=== PATIENT | female | born 1985 | race Caucasian/White ===

== ENCOUNTER 2016-10-21 21:12 | Emergency (ER) | payer OTHER ==
[2016-10-21] MEDS ORDERED: ACETAMINOPHEN TAB 650MG DOSE (2X325MG) As Ordered ONE (23:28)
[2016-10-21] MEDS ORDERED: MORPHINE 4 MG/ML 1ML SYRINGE As Ordered ONE (23:28)
[2016-10-21] MEDS ORDERED: ONDANSETRON 4MG/2ML VIAL (J2405) As Ordered ONE (23:28)
[2016-10-22] MEDS ORDERED: ISOVUE-370 76% 100ML VIAL (Q9967) As Ordered ONE
[2016-10-22] MEDS ORDERED: GASTROGRAFIN SOLUTION 30ML (Q9963) As Ordered ONE (00:01)
[2016-10-22] MEDS ORDERED: ACETAMINOPHEN 650 MG SUPP As Ordered ONE (00:01)
[2016-10-22 00:06] LABS: BASO % 0.3 % (0.0-1.0); EOS % 0.3 % (0.0-3.0); LARGE UNSTAINED CELL # 0.1 K/mm3 (0.0-0.4); LARGE UNSTAINED CELL % 1.5 % (0.0-4.0); LYMPH # 1.5 K/mm3 (1.5-4.5); LYMPH % 20.7 % (24.0-44.0); MEAN CORPUSCULAR HEMOGLOBIN 26.5 pg (27.0-33.0); MEAN CORPUSCULAR HGB CONC 32.5 g/dl (32.0-36.5); MEAN CORPUSCULAR VOLUME 81.5 fl (80.0-96.0); MONO # 0.4 K/mm3 (0.0-0.8); MONO % 5.3 % (0.0-5.0); NEUTROPHILS # 5.3 K/mm3 (1.8-7.7); NEUTROPHILS % 71.8 % (36.0-66.0); PLATELET COUNT, AUTOMATED 116 k/mm3 (150-450); RED CELL DISTRIBUTION WIDTH 13.6 % (11.5-14.5); WHITE BLOOD COUNT 7.3 K/mm3 (4.0-10.0)
[2016-10-22 01:05] LABS: ALBUMIN 3.2 GM/DL (3.2-5.2); ALBUMIN/GLOBULIN RATIO 0.97 (1.00-1.93); ALKALINE PHOSPHATASE 59 U/L (45-117); ALT/SGPT 23 U/L (12-78); ANION GAP 10 MEQ/L (8-16); AST/SGOT 12 U/L (15-37); BILIRUBIN,DIRECT 0.2 MG/DL (0.0-0.2); BILIRUBIN,TOTAL 0.7 MG/DL (0.2-1.0); BLOOD UREA NITROGEN 7 MG/DL (7-18); CALCIUM LEVEL 8.3 MG/DL (8.5-10.1); CARBON DIOXIDE LEVEL 24 MEQ/L (21-32); CHLORIDE LEVEL 108 MEQ/L (98-107); CREATININE FOR GFR 0.54 MG/DL (0.55-1.02); GLOMERULAR FILTRATION RATE > 60.0 (>60); GLUCOSE, FASTING 84 MG/DL (70-105); POTASSIUM SERUM 3.6 MEQ/L (3.5-5.1); SODIUM LEVEL 142 MEQ/L (136-145); TOTAL PROTEIN 6.5 GM/DL (6.4-8.2)
[2016-10-22 01:06] LABS: CONTROL LINE HCG INT CTR LINE PRESENT
--- NOTE | 2016-10-22 04:10 | REPUSA ---
CLINICAL HISTORY: Abdominal pain. TECHNIQUE: Multiple axial, sagittal and coronal CT images were obtained through the abdomen and pelvi s after administration of oral and intravenous contrast material. COMMENTS: The liver is of uniform attenuation without mass or defect. There is no intra or extrahepatic biliary ductal dilatation. The spleen is normal. The gallbladder is surgically absent. The pancreas is of no rmal contour and attenuation characteristics. There is no evidence of adrenal mass. Both kidneys demonstrate prompt and equal nephrograms. The kidneys are normal in size, shape and conf iguration. There is no evidence of renal or ureteral mass. No renal or ureteral calculi are identifie d. There is no hydroureter or hydronephrosis. No evidence for appendicitis. No evidence for small or large bowel obstruction. There is no evidence of abdominal ascites or lymphadenopathy. Mildly dilated proximal small bowels. Diffuse thickening of the sigmoid and descending colon. There is no evidence of intrinsic or extrinsic bladder mass. There is no pelvic ascites or lymphadeno leticia. Intrauterine device is seen. Diffuse thickening of the wall of the bladder. Images of the lung bases show no evidence of pleural or parenchymal mass. There are no pleural effusi ons. The bony structures are free of lytic or blastic lesions. Multilevel degenerative changes are seen in volving the thoracolumbar spine. Scattered calcifications are seen involving the aorta and major bran ches compatible with atherosclerosis. IMPRESSION: Gastric surgery. Fat thickening in the surgical bed. Mild ileus. Diffuse thickening of the sigmoid and descending colon. Thank you for your kind referral of this patient.
--- NOTE | 2016-10-22 04:26 | EDDOCDS ---
Nurse's Notes [facility] Name: Raquel Castaneda Age: 30 yrs Sex: Female : 1985 Arrival Date: 10/21/2016 Time: 21:12 Bed 6 Private MD: PATO Correa Diagnosis: Abdominal tenderness;Postgastric surgery syndromes Presentation: 10/21 21:15 Presenting complaint: Patient states: Patient reports five weeks post gastric sleeve jmb and pulled on abdomen. Since incident patient has had abdominal pain, most pin under left breast. Adult Sepsis Screening: The patient does not have new or worsening altered mentation. Patient's respiratory rate is less than 22. Systolic blood pressure is greater than 100. Patient has a qSOFA score of 0- Negative Sepsis Screen. Suicide/Homicide risk assessment- the patient denies having any suicidal and/or homicidal ideations and does not present with any other emotional, behavioral or mental health complaints. Status: The patient is a dependent. Transition of care: patient was not received from another setting of care. 21:15 Acuity: TATIANA Level 3 jmb 21:15 Method Of Arrival: Walkin/Carried/Asstd jmb Triage Assessment: 21:17 General: Appears in no apparent distress. Pain: Location: left breast Pain currently is jmb 9 out of 10 on a pain scale. HIV screening NA for this visit Offered previously. Neurological: Level of Consciousness is awake, alert, obeys commands, Oriented to person, place, time, Speech is normal, Facial symmetry appears normal, Facial symmetry: tongue is midline. Respiratory: Airway is patent Respiratory effort is even, unlabored, Respiratory pattern is regular, symmetrical. Derm: Skin is pink, warm & dry. Musculoskeletal: Range of motion intact in all extremities. 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 none - PMHx: PCOS; Anxiety; Depression; - PSHx: Tonsillectomy; D & C; Gastric Bypass; - Social history: Smoking status: Patient states was never smoker of tobacco. No barriers to communication noted, The patient speaks fluent Romanian, Speaks appropriately for age. - Family history: No immediate family members are acutely ill. - : The pt / caregiver states he / she is not on anticoagulants. Home medication list is obtained from the patient. - Exposure Risk Screening:: None identified. Screenin/07 04:22 Screening information is obtained from the patient. Fall risk: No risks identified. nn1 Assistance ADL's: requires no assistance with activities of daily living. Abuse/DV Screen: The patient / caregiver reports he/she is: not in a situation that causes fear, pain or injury. Nutritional screening: No deficits noted. Advance Directives: There is no active DNR order. home support is adequate. Assessment: 10/21 23:17 General: Appears in no apparent distress, uncomfortable, Behavior is appropriate for nn1 age, cooperative. Pain: Location: left upper quadrant and left lower quadrant Pain currently is 7 out of 10 on a pain scale. Quality of pain is described as "twisting" Pain began 1200 pm today. Neurological: Level of Consciousness is awake, alert, obeys commands. Cardiovascular: Capillary refill < 3 seconds. Respiratory: Airway is patent Respiratory effort is even, unlabored, Respiratory pattern is regular, symmetrical. GI: Abdomen is non- distended other Healed incision lobo throughout abdomen from surgery in August Bowel sounds present X 4 quads. Abd is soft X 4 quads Abd is tender to palpation in left upper quadrant and left lower quadrant Reports diarrhea, nausea, vomiting, intolerance of food, intolerance of fluids. : Denies burning with urination, vaginal bleeding. Derm: Skin is pink, warm & dry. 10/22 00:12 General: Patient drinking first cup of contrast. Patient requesting to wait on morphine nn1 until BP increases, BP 101/56, patient states this is low for her. . 00:20 General: Patients BP increased to 110/61, patient given morphine. Patient on BP nn1 monitor. . 01:31 General: Patient finished drinking contrast at approximately 0110. Patient reports her nn1 stomach is upset due to contrast. Patient states she thinks her fever is breaking, patient diaphoretic and flushed.. Neurological: Level of Consciousness is awake, alert, obeys commands. Respiratory: Airway is patent Respiratory effort is even, unlabored, Respiratory pattern is regular, symmetrical. Derm: Skin is pink, warm & dry. 02:08 General: Patient received CT scan. Patient no longer diaphoretic. States pain is nn1 bearable. . 03:25 Reassessment: Patient appears in no apparent distress at this time. Patient states nn1 feeling better. 03:57 General: Patient reports pain is increasing in left abdomen. Provider notified. Patient nn1 awaiting disposition at this time. . 04:21 General: Appears in no apparent distress, uncomfortable, Behavior is appropriate for nn1 age, cooperative, Patient receptive to discharge at this time. Reports she continues to have some abdominal discomfort but pain is tolerable. . Neurological: Level of Consciousness is awake, alert. Respiratory: Airway is patent Respiratory effort is even, unlabored, Respiratory pattern is regular, symmetrical. GI: Denies nausea. Derm: Skin is pink, warm & dry. Vital Signs: 10/21 21:14 BP 120 / 69; Pulse 125; Resp 18; Temp 100.7(O); Pulse Ox 98% on R/A; Weight 118.84 kg; dem1 Height 5 ft. 8 in. (172.72 cm); Pain 8/10; 23:49 BP 101 / 58 (auto/); nn1 23:56 BP 104 / 61 (auto/); nn1 02/07 00:11 BP 110 / 61 (auto/); nn1 00:41 BP 105 / 62 (auto/); nn1 00:56 BP 103 / 64 (auto/); nn1 01:11 BP 106 / 64 (auto/); nn1 01:26 BP 108 / 62 (auto/); nn1 01:40 Resp 18; Temp 98.1(O); nn1 02:08 BP 112 / 58; Pulse 61; Resp 18; Pulse Ox 97% on R/A; nn1 04:16 BP 108 / 59; Pulse 71; Resp 18; Temp 97.5(O); Pulse Ox 95% on R/A; Pain 5/10; tana 10/21 21:14 Body Mass Index 39.84 (118.84 kg, 172.72 cm) [facility] Vitals: 10/21 21:14 Log In Time: October 21, 2016 at 21:11. [facility] ED Course: 21:14 Patient visited by Maggy Govea. [facility] 21:14 Sunny [facility] is Private Physician. [facility] 21:14 Patient moved to Waiting dem1 21:14 Patient moved to Pre RCE dem1 21:15 Triage Initiated philippe 23:03 Peri Babin RN is Primary Nurse. tana 23:03 Patient moved to 6 tana 23:06 Karan Flores MD is Attending Physician. br1 23:06 Patient visited by July Robbins PCA. tana 23:10 Patient visited by Carson Vanegas RN. nn1 23:14 Patient visited by Karan Flores MD. br1 23:56 Primary Nurse role handed off by Peri Babin RN tana 23:56 [facility] Payment Agreement was scanned into [email or web address] and attached to record. zo 23:58 Lactic Acid (Allan tube on ice) Sent. nn1 23:58 Lipase Sent. nn1 23:58 Liver Profile Sent. nn1 23:58 BMP Sent. nn1 23:58 CBC with Diff Sent. nn1 23:58 Urine Culture Sent. nn1 23:58 Urinalysis Sent. nn1 23:59 Inserted saline lock: 20 gauge in right antecubital area and blood collected. The nn1 patient tolerated the procedure well. Labs drawn. (by ED staff). Sent per order to lab. Urine collected. Clean catch specimen. Urine specimen sent to lab. 0207 00:01 Attending Physician role handed off by Karan Flores MD cs11 00:01 Salvador Garnett DO is Attending Physician. cs11 00:18 Patient visited by Carson Vanegas RN. nn1 01:20 Patient visited by Carson Vanegas RN. nn1 02:09 Patient visited by Carson Vanegas RN. nn1 02:47 Patient visited by Carson Vanegas RN. nn1 03:24 Patient visited by Carson Vanegas RN. nn1 03:57 Patient visited by Carson Vanegas RN. nn1 04:10 Sunny [facility] is Referral Physician. cs11 04:17 Patient visited by July Robbins PCA. tana 04:23 The patient / caregiver is instructed regarding the plan of care and ED course. nn1 04:23 No procedures done that require assistance. nn1 Administered Medications: 10/21 23:56 Not Given (Patient Refused): Acetaminophen Tablet 650 mg PO once br1 23:58 Drug: NS 0.9% 1000 ml [sodium chloride 0.9 % intravenous solution] Route: IV; Rate: 150 nn1 mL/hr; Site: right antecubital; 10/22 04:25 Follow up: IV Status: Infusion discontinued; IV Intake: 900ml nn1 10/21 23:58 Drug: Ondansetron 4 mg [ondansetron HCl 2 mg/mL intravenous solution (2 mL)] Route: nn1 IVP; Site: right antecubital; 10/22 00:19 Drug: morphine 4 mg [morphine 4 mg/mL intravenous cartridge (1 mL)] Route: IVP; Site: nn1 right antecubital; 00:19 Drug: Acetaminophen 650 mg [acetaminophen 650 mg rectal suppository (1 supp)] Route: OR;nn1 00:19 Drug: Diatrizoate Meglumine & Sodium 10 ml [diatrizoate meglumine and diat.sodium 66 nn1 %-10 % oral solution (10 mL)] Route: PO; Intake: 04:25 IV: 900.00ml; Total: 900.00ml. nn1 Order Results: Lab Order: CBC with Diff; SPEC'M 10/21/16 23:41 Test: WHITE BLOOD COUNT; Value: 7.3; Range: 4.0-10.0; Units: K/mm3; Status: F Test: RED BLOOD COUNT; Value: 4.65; Range: 4.00-5.40; Units: M/mm3; Status: F Test: HEMOGLOBIN; Value: 12.3; Range: 12.0-16.0; Units: g/dl; Status: F Test: HEMATOCRIT; Value: 37.9; Range: 36.0-47.0; Units: %; Status: F Test: MEAN CORPUSCULAR VOLUME; Value: 81.5; Range: 80.0-96.0; Units: fl; Status: F Test: MEAN CORPUSCULAR HEMOGLOBIN; Value: 26.5; Range: 27.0-33.0; Abnormal: Below low normal; Units: pg; Status: F Test: MEAN CORPUSCULAR HGB CONC; Value: 32.5; Range: 32.0-36.5; Units: g/dl; Status: F Test: RED CELL DISTRIBUTION WIDTH; Value: 13.6; Range: 11.5-14.5; Units: %; Status: F Test: PLATELET COUNT, AUTOMATED; Value: 116; Range: 150-450; Abnormal: Below low normal; Units: k/mm3; Status: F Test: NEUTROPHILS %; Value: 71.8; Range: 36.0-66.0; Abnormal: Above high normal; Units: %; Status: F Test: LYMPH %; Value: 20.7; Range: 24.0-44.0; Abnormal: Below low normal; Units: %; Status: F Test: MONO %; Value: 5.3; Range: 0.0-5.0; Abnormal: Above high normal; Units: %; Status: F Test: EOS %; Value: 0.3; Range: 0.0-3.0; Units: %; Status: F Test: BASO %; Value: 0.3; Range: 0.0-1.0; Units: %; Status: F Test: LARGE UNSTAINED CELL %; Value: 1.5; Range: 0.0-4.0; Units: %; Status: F Test: NEUTROPHILS #; Value: 5.3; Range: 1.8-7.7; Units: K/mm3; Status: F Test: LYMPH #; Value: 1.5; Range: 1.5-4.5; Units: K/mm3; Status: F Test: MONO #; Value: 0.4; Range: 0.0-0.8; Units: K/mm3; Status: F Test: EOS #; Value: 0.0; Range: 0.0-0.50; Units: K/mm3; Status: F Test: BASO #; Value: 0.0; Range: 0.0-0.2; Units: K/mm3; Status: F Test: LARGE UNSTAINED CELL #; Value: 0.1; Range: 0.0-0.4; Units: K/mm3; Status: F Lab Order: [facility]; SPEC'M 10/22/16 00:32 Test: GLUCOSE, FASTING; Value: 84; Range: 70-105; Units: MG/DL; Status: F Test: BLOOD UREA NITROGEN; Value: 7; Range: 7-18; Units: MG/DL; Status: F Test: CREATININE FOR GFR; Value: 0.54; Range: 0.55-1.02; Abnormal: Below low normal; Units: MG/DL; Status: F Test: GLOMERULAR FILTRATION RATE; Value: > 60.0; Range: >60; Status: F Test: SODIUM LEVEL; Value: 142; Range: 136-145; Units: MEQ/L; Status: F Test: POTASSIUM SERUM; Value: 3.6; Range: 3.5-5.1; Units: MEQ/L; Status: F Test: CHLORIDE LEVEL; Value: 108; Range: 98-107; Abnormal: Above high normal; Units: MEQ/L; Status: F Test: CARBON DIOXIDE LEVEL; Value: 24; Range: 21-32; Units: MEQ/L; Status: F Test: ANION GAP; Value: 10; Range: 8-16; Units: MEQ/L; Status: F Test: CALCIUM LEVEL; Value: 8.3; Range: 8.5-10.1; Abnormal: Below low normal; Units: MG/DL; Status: F Test Note: ; Units are mL/min/1.73 m2 Chronic Kidney Disease Staging per NKF: Stage I & II GFR >=60 Normal to Mildly Decreased Stage III GFR 30-59 Moderately Decreased Stage IV GFR 15-29 Severely Decreased Stage V GFR <15 Very Little GFR Left ESRD GFR <15 on CONCRETE BLOCK LAYER Lab Order: Liver Profile; [facility]' 10/22/16 00:32 Test: AST/SGOT; Value: 12; Range: 15-37; Abnormal: Below low normal; Units: U/L; Status: F Test: ALT/SGPT; Value: 23; Range: 12-78; Units: U/L; Status: F Test: ALKALINE PHOSPHATASE; Value: 59; Range: 45-117; Units: U/L; Status: F Test: BILIRUBIN,TOTAL; Value: 0.7; Range: 0.2-1.0; Units: MG/DL; Status: F Test: BILIRUBIN,DIRECT; Value: 0.2; Range: 0.0-0.2; Units: MG/DL; Status: F Test: TOTAL PROTEIN; Value: 6.5; Range: 6.4-8.2; Units: GM/DL; Status: F Test: ALBUMIN; Value: 3.2; Range: 3.2-5.2; Units: GM/DL; Status: F Test: ALBUMIN/GLOBULIN RATIO; Value: 0.97; Range: 1.00-1.93; Abnormal: Below low normal; Status: F Lab Order: Lipase; SPEC' 10/22/16 00:32 Test: LIPASE; Value: 158; Range: 73-393; Units: U/L; Status: F Lab Order: Lactic Acid (Allan tube on ice); SPEC'M 10/21/16 23:41 Test: LACTIC ACID SEPSIS PROTOCOL; Value: 0.6; Range: 0.4-2.0; Units: MMOL/L; Status: F Lab Order: HCG,Serum Qualitative; SPEC'M 10/22/16 00:32 Test: HCG, SERUM QUALITATIVE; Value: NEGATIVE; Range: NEGATIVE; Status: F Lab Order: Urinalysis; SPEC 10/21/16 23:41 Test: APPEARANCE, URINE; Value: CLOUDY; Range: CLEAR; Abnormal: Above high normal; Status: F Test: COLOR, URINE; Value: VIVIANA; Range: YELLOW; Status: F Test: PH,URINE; Value: 5.0; Range: 5.0-9.0; Units: UNITS; Status: F Test: SPECIFIC GRAVITY URINE AUTO; Value: 1.032; Range: 1.002-1.035; Status: F Test: PROTEIN, URINE AUTO; Value: 2+; Range: NEGATIVE; Abnormal: Above high normal; Units: mg/dL; Status: F Test: GLUCOSE, URINE (UA) AUTO; Value: NEGATIVE; Range: NEGATIVE; Units: mg/dL; Status: F Test: KETONE, URINE AUTO; Value: 2+; Range: NEGATIVE; Abnormal: Above high normal; Units: mg/dL; Status: F Test: UROBILINOGEN, URINE AUTO; Value: 2.0; Range: 0.0-2.0; Abnormal: Above high normal; Units: mg/dL; Status: F Test: BILIRUBIN, URINE AUTO; Value: 2+; Range: NEGATIVE; Abnormal: Above high normal; Status: F Test: NITRITE, URINE AUTO; Value: NEGATIVE; Range: NEGATIVE; Status: F Test: LEUKOCYTE ESTERASE, URINE AUTO; Value: NEGATIVE; Range: NEGATIVE; Status: F Test: BLOOD, URINE BLOOD; Value: NEGATIVE; Range: NEGATIVE; Status: F Test: WBC, URINE AUTO; Value: 5; Range: 0-3; Abnormal: Above high normal; Units: /HPF; Status: F Test: RBC, URINE AUTO; Value: 2; Range: 0-3; Units: /HPF; Status: F Test: BACTERIA, URINE AUTO; Value: NEGATIVE; Range: NEGATIVE; Status: F Test: SQUAMOUS EPITHELIAL CELL UR AU; Value: 10; Range: 0-6; Units: /HPF; Status: F Test: MUCUS, URINE; Value: LARGE; Range: NEGATIVE; Status: F Test: HYALINE CAST, URINE AUTO; Value: 0; Range: 0-1; Units: /LPF; Status: F Outcome: 04:10 Discharge ordered by Provider. cs11 04:22 Discharge Assessment: Patient awake, alert and oriented x 3. No cognitive and/or nn1 functional deficits noted. Patient verbalized understanding of disposition instructions. patient administered narcotics - yes. Pt provided with safe discharge. The following High Risk Discharge criteria are identified: None. Discharged to home ambulatory, with significant other. Condition: good Condition: stable Condition: improved. CT Study completed. Property :Personal belongings accompany Pt. 04:25 Patient left the ED. nn1 Signatures: Jennifer Angel Brian, MD MD br1 July Robbins, ARIAS [employer] Maggy Felix dem1 Salvador Garnett DO DO cs11 Gagan Amaya,RN RN Carson EspositoRN RN nn1 MTDD
--- NOTE | 2016-10-22 04:26 | EDDOCDS ---
Physician Documentation [facility] Name: Raquel Castaneda Age: 30 yrs Sex: Female : 1985 Arrival Date: 10/21/2016 Time: 21:12 Bed 6 Private MD: PATO Correa Disposition: 10/22/16 04:10 Discharged to Home/Self Care. Impression: Abdominal tenderness, Postgastric surgery syndromes. - Condition is Stable. - Medication Reconciliation, Local Pharmacy Hours form. - Follow up: PATO Correa; When: Call to arrange an appointment; Reason: Recheck today's complaints. - Problem is an ongoing problem. - Symptoms have improved. Historical: - Allergies: PCN; Zantac; - Home Meds: 1. none - PMHx: PCOS; Anxiety; Depression; - PSHx: Tonsillectomy; D & C; Gastric Bypass; - Social history: Smoking status: Patient states was never smoker of tobacco. No barriers to communication noted, The patient speaks fluent Sudanese, Speaks appropriately for age. - Family history: No immediate family members are acutely ill. - : The pt / caregiver states he / she is not on anticoagulants. Home medication list is obtained from the patient. - Exposure Risk Screening:: None identified. DIRECTOR OF INSTRUCTION: 10/21 21:17 LMP N/A - control method [facility] Vital Signs: 21:14 BP 120 / 69; Pulse 125; Resp 18; Temp 100.7(O); Pulse Ox 98% on R/A; Weight 118.84 kg / dem1 262 lbs; Height 5 ft. 8 in. (172.72 cm); Pain 8/10; 23:49 BP 101 / 58 (auto/); nn1 23:56 BP 104 / 61 (auto/); nn1 02 00:11 BP 110 / 61 (auto/); nn1 00:41 BP 105 / 62 (auto/); nn1 00:56 BP 103 / 64 (auto/); nn1 01:11 BP 106 / 64 (auto/); nn1 01:26 BP 108 / 62 (auto/); nn1 01:40 Resp 18; Temp 98.1(O); nn1 02:08 BP 112 / 58; Pulse 61; Resp 18; Pulse Ox 97% on R/A; nn1 04:16 BP 108 / 59; Pulse 71; Resp 18; Temp 97.5(O); Pulse Ox 95% on R/A; Pain 5/10; tana 10/21 21:14 Body Mass Index 39.84 (118.84 kg, 172.72 cm) dem1 MDM: 10/21 23:15 IV Saline Lock ordered. br1 23:15 Acetaminophen Tablet 650 mg PO once ordered. br1 23:15 NS 0.9% 1000 ml IV at 150 mL/hr continuous ordered. br1 23:16 morphine 4 mg IVP once ordered. br1 23:16 Ondansetron 4 mg IVP once ordered. br1 23:16 CBC with Diff Ordered. EDMS 23:16 BMP Ordered. EDMS 23:16 Liver Profile Ordered. EDMS 23:16 Lipase Ordered. EDMS 23:16 Lactic Acid (Allan tube on ice) Ordered. EDMS 23:16 HCG,Serum Qualitative Ordered. EDMS 23:17 Urinalysis Ordered. EDMS 23:17 Urine Culture Ordered. EDMS 23:52 CT ABD & PELVIS: IV and Oral Contrast Ordered. EDMS 23:55 Financial registration complete. zo 23:56 [facility] Payment Agreement was scanned into [employer] and attached to record. zo 23:56 Acetaminophen Suppository 650 mg ME once ordered. br1 23:57 NOTHING BY MOUTH+DIET ordered. EDMS 07 00:12 Diatrizoate Meglumine & Sodium Liquid 10 ml PO once; mix in 290cc of water; 1st cup \T\ nn1 0010, 2nd cup \T\ 0040 ordered. 01:02 CBC with Diff Reviewed. cs11 01:02 Urinalysis Reviewed. cs11 01:02 Lactic Acid (Allan tube on ice) Reviewed. cs11 04:07 BMP Reviewed. cs11 04:07 Liver Profile Reviewed. cs11 04:07 Lipase Reviewed. cs11 04:07 HCG,Serum Qualitative Reviewed. cs11 Administered Medications: 10/21 23:56 Not Given (Patient Refused): Acetaminophen Tablet 650 mg PO once br1 23:58 Drug: NS 0.9% 1000 ml [sodium chloride 0.9 % intravenous solution] Route: IV; Rate: 150 nn1 mL/hr; Site: right antecubital; 10/22 04:25 Follow up: IV Status: Infusion discontinued; IV Intake: 900ml nn1 10/21 23:58 Drug: Ondansetron 4 mg [ondansetron HCl 2 mg/mL intravenous solution (2 mL)] Route: nn1 IVP; Site: right antecubital; 10/22 00:19 Drug: morphine 4 mg [morphine 4 mg/mL intravenous cartridge (1 mL)] Route: IVP; Site: nn1 right antecubital; 00:19 Drug: Acetaminophen 650 mg [acetaminophen 650 mg rectal suppository (1 supp)] Route: ME;nn1 00:19 Drug: Diatrizoate Meglumine & Sodium 10 ml [diatrizoate meglumine and diat.sodium 66 nn1 %-10 % oral solution (10 mL)] Route: PO; Signatures: Dispatcher [employer] EDJennifer Williamson Brian, MD MD br1 Salvador Garnett DO DO cs11 Gagan Amaya RN RN jmb Nunez, NikkoleRN RN nn1 The chart was reviewed and I authenticate all verbal orders and agree with the evaluation and treatment provided.Attachments: 10/21 23:56 [facility] Payment Agreement zo MTDD
--- NOTE | 2016-10-24 05:26 | EDDOCDS ---
Physician Documentation [facility] Name: Raquel Castaneda Age: 30 yrs Sex: Female : 1985 Arrival Date: 10/21/2016 Time: 21:12 Bed 6 Private MD: PATO Correa Disposition: 10/22/16 04:10 Discharged to Home/Self Care. Impression: Abdominal tenderness, Postgastric surgery syndromes. - Condition is Stable. - Medication Reconciliation, Local Pharmacy Hours form. - Follow up: PATO Correa; When: Call to arrange an appointment; Reason: Recheck today's complaints. - Problem is an ongoing problem. - Symptoms have improved. Historical: - Allergies: PCN; Zantac; - Home Meds: 1. none - PMHx: PCOS; Anxiety; Depression; - PSHx: Tonsillectomy; D & C; Gastric Bypass; - Social history: Smoking status: Patient states was never smoker of tobacco. No barriers to communication noted, The patient speaks fluent Bhutanese, Speaks appropriately for age. - Family history: No immediate family members are acutely ill. - : The pt / caregiver states he / she is not on anticoagulants. Home medication list is obtained from the patient. - Exposure Risk Screening:: None identified. 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 8 in. (172.72 cm); Pain 8/10; 23:49 BP 101 / 58 (auto/); nn1 23:56 BP 104 / 61 (auto/); nn1 02 00:11 BP 110 / 61 (auto/); nn1 00:41 BP 105 / 62 (auto/); nn1 00:56 BP 103 / 64 (auto/); nn1 01:11 BP 106 / 64 (auto/); nn1 01:26 BP 108 / 62 (auto/); nn1 01:40 Resp 18; Temp 98.1(O); nn1 02:08 BP 112 / 58; Pulse 61; Resp 18; Pulse Ox 97% on R/A; nn1 04:16 BP 108 / 59; Pulse 71; Resp 18; Temp 97.5(O); Pulse Ox 95% on R/A; Pain 5/10; tana 10/21 21:14 Body Mass Index 39.84 (118.84 kg, 172.72 cm) dem1 MDM: 10/21 23:15 IV Saline Lock ordered. br1 23:15 Acetaminophen Tablet 650 mg PO once ordered. br1 23:15 NS 0.9% 1000 ml IV at 150 mL/hr continuous ordered. br1 23:16 morphine 4 mg IVP once ordered. br1 23:16 Ondansetron 4 mg IVP once ordered. br1 23:16 CBC with Diff Ordered. EDMS 23:16 BMP Ordered. EDMS 23:16 Liver Profile Ordered. EDMS 23:16 Lipase Ordered. EDMS 23:16 Lactic Acid (Allan tube on ice) Ordered. EDMS 23:16 HCG,Serum Qualitative Ordered. EDMS 23:17 Urinalysis Ordered. EDMS 23:17 Urine Culture Ordered. EDMS 23:52 CT ABD & PELVIS: IV and Oral Contrast Ordered. EDMS 23:55 Financial registration complete. zo 23:56 [facility] Payment Agreement was scanned into [employer] and attached to record. zo 23:56 Acetaminophen Suppository [address] once ordered. br1 23:57 NOTHING BY MOUTH+DIET ordered. EDMS 07 00:12 Diatrizoate Meglumine & Sodium Liquid 10 ml PO once; mix in 290cc of water; 1st cup \T\ nn1 0010, 2nd cup \T\ 0040 ordered. 01:02 CBC with Diff Reviewed. cs11 01:02 Urinalysis Reviewed. cs11 01:02 Lactic Acid (Allan tube on ice) Reviewed. cs11 04:07 BMP Reviewed. cs11 04:07 Liver Profile Reviewed. cs11 04:07 Lipase Reviewed. cs11 04:07 HCG,Serum Qualitative Reviewed. cs11 10:08 T-Sheet-- Draft Copy was scanned into [employer] and attached to record. gb 10:08 Radiology Report was scanned into [employer] and attached to record. gb Administered Medications: 10/21 23:56 Not Given (Patient Refused): Acetaminophen Tablet 650 mg PO once br1 23:58 Drug: NS 0.9% 1000 ml [sodium chloride 0.9 % intravenous solution] Route: IV; Rate: 150 nn1 mL/hr; Site: right antecubital; 10/22 04:25 Follow up: IV Status: Infusion discontinued; IV Intake: 900ml nn1 10/21 23:58 Drug: Ondansetron 4 mg [ondansetron HCl 2 mg/mL intravenous solution (2 mL)] Route: nn1 IVP; Site: right antecubital; 10/22 00:19 Drug: morphine 4 mg [morphine 4 mg/mL intravenous cartridge (1 mL)] Route: IVP; Site: nn1 right antecubital; 00:19 Drug: Acetaminophen 650 mg [acetaminophen 650 mg rectal suppository (1 supp)] Route: CT;nn1 00:19 Drug: Diatrizoate Meglumine & Sodium 10 ml [diatrizoate meglumine and diat.sodium 66 nn1 %-10 % oral solution (10 mL)] Route: PO; Signatures: Dispatcher [employer] EDMS Carmen Romero, Reg Reg gb Jennifer Angel Brian, MD MD br1 Salvador Garnett DO DO cs11 Gagan Amaya,DEVANTE RN jacquelinb Carson Vanegas,RN RN nn1 The chart was reviewed and I authenticate all verbal orders and agree with the evaluation and treatment provided.Attachments: 10/21 23:56 [facility] Payment Agreement zo 10/22 10:08 T-Sheet-- Draft Copy gb Chart Complete MTDD
--- NOTE | 2016-10-24 05:26 | EDDOCDS ---
Nurse's Notes [facility] Name: Raquel Castaneda Age: 30 yrs Sex: Female : 1985 Arrival Date: 10/21/2016 Time: 21:12 Bed 6 Private MD: PATO Correa Diagnosis: Abdominal tenderness;Postgastric surgery syndromes Presentation: 10/21 21:15 Presenting complaint: Patient states: Patient reports five weeks post gastric sleeve jmb and pulled on abdomen. Since incident patient has had abdominal pain, most pin under left breast. Adult Sepsis Screening: The patient does not have new or worsening altered mentation. Patient's respiratory rate is less than 22. Systolic blood pressure is greater than 100. Patient has a qSOFA score of 0- Negative Sepsis Screen. Suicide/Homicide risk assessment- the patient denies having any suicidal and/or homicidal ideations and does not present with any other emotional, behavioral or mental health complaints. Status: The patient is a dependent. Transition of care: patient was not received from another setting of care. 21:15 Acuity: TATIANA Level 3 jmb 21:15 Method Of Arrival: Walkin/Carried/Asstd jmb Triage Assessment: 21:17 General: Appears in no apparent distress. Pain: Location: left breast Pain currently is jmb 9 out of 10 on a pain scale. HIV screening NA for this visit Offered previously. Neurological: Level of Consciousness is awake, alert, obeys commands, Oriented to person, place, time, Speech is normal, Facial symmetry appears normal, Facial symmetry: tongue is midline. Respiratory: Airway is patent Respiratory effort is even, unlabored, Respiratory pattern is regular, symmetrical. Derm: Skin is pink, warm & dry. Musculoskeletal: Range of motion intact in all extremities. RING STRIKER: 21:17 LMP N/A - control [facility] Historical: - Allergies: PCN; Zantac; - Home Meds: 1. none - PMHx: PCOS; Anxiety; Depression; - PSHx: Tonsillectomy; D & C; Gastric Bypass; - Social history: Smoking status: Patient states was never smoker of tobacco. No barriers to communication noted, The patient speaks fluent Lao, Speaks appropriately for age. - Family history: No immediate family members are acutely ill. - : The pt / caregiver states he / she is not on anticoagulants. Home medication list is obtained from the patient. - Exposure Risk Screening:: None identified. Screenin/07 04:22 Screening information is obtained from the patient. Fall risk: No risks identified. nn1 Assistance ADL's: requires no assistance with activities of daily living. Abuse/DV Screen: The patient / caregiver reports he/she is: not in a situation that causes fear, pain or injury. Nutritional screening: No deficits noted. Advance Directives: There is no active DNR order. home support is adequate. Assessment: 10/21 23:17 General: Appears in no apparent distress, uncomfortable, Behavior is appropriate for nn1 age, cooperative. Pain: Location: left upper quadrant and left lower quadrant Pain currently is 7 out of 10 on a pain scale. Quality of pain is described as "twisting" Pain began 1200 pm today. Neurological: Level of Consciousness is awake, alert, obeys commands. Cardiovascular: Capillary refill < 3 seconds. Respiratory: Airway is patent Respiratory effort is even, unlabored, Respiratory pattern is regular, symmetrical. GI: Abdomen is non- distended other Healed incision lobo throughout abdomen from surgery in August Bowel sounds present X 4 quads. Abd is soft X 4 quads Abd is tender to palpation in left upper quadrant and left lower quadrant Reports diarrhea, nausea, vomiting, intolerance of food, intolerance of fluids. : Denies burning with urination, vaginal bleeding. Derm: Skin is pink, warm & dry. 10/22 00:12 General: Patient drinking first cup of contrast. Patient requesting to wait on morphine nn1 until BP increases, BP 101/56, patient states this is low for her. . 00:20 General: Patients BP increased to 110/61, patient given morphine. Patient on BP nn1 monitor. . 01:31 General: Patient finished drinking contrast at approximately 0110. Patient reports her nn1 stomach is upset due to contrast. Patient states she thinks her fever is breaking, patient diaphoretic and flushed.. Neurological: Level of Consciousness is awake, alert, obeys commands. Respiratory: Airway is patent Respiratory effort is even, unlabored, Respiratory pattern is regular, symmetrical. Derm: Skin is pink, warm & dry. 02:08 General: Patient received CT scan. Patient no longer diaphoretic. States pain is nn1 bearable. . 03:25 Reassessment: Patient appears in no apparent distress at this time. Patient states nn1 feeling better. 03:57 General: Patient reports pain is increasing in left abdomen. Provider notified. Patient nn1 awaiting disposition at this time. . 04:21 General: Appears in no apparent distress, uncomfortable, Behavior is appropriate for nn1 age, cooperative, Patient receptive to discharge at this time. Reports she continues to have some abdominal discomfort but pain is tolerable. . Neurological: Level of Consciousness is awake, alert. Respiratory: Airway is patent Respiratory effort is even, unlabored, Respiratory pattern is regular, symmetrical. GI: Denies nausea. Derm: Skin is pink, warm & dry. Vital Signs: 10/21 21:14 BP 120 / 69; Pulse 125; Resp 18; Temp 100.7(O); Pulse Ox 98% on R/A; Weight 118.84 kg; dem1 Height 5 ft. 8 in. (172.72 cm); Pain 8/10; 23:49 BP 101 / 58 (auto/); nn1 23:56 BP 104 / 61 (auto/); nn1 02/07 00:11 BP 110 / 61 (auto/); nn1 00:41 BP 105 / 62 (auto/); nn1 00:56 BP 103 / 64 (auto/); nn1 01:11 BP 106 / 64 (auto/); nn1 01:26 BP 108 / 62 (auto/); nn1 01:40 Resp 18; Temp 98.1(O); nn1 02:08 BP 112 / 58; Pulse 61; Resp 18; Pulse Ox 97% on R/A; nn1 04:16 BP 108 / 59; Pulse 71; Resp 18; Temp 97.5(O); Pulse Ox 95% on R/A; Pain 5/10; tana 10/21 21:14 Body Mass Index 39.84 (118.84 kg, 172.72 cm) [facility] Vitals: 10/21 21:14 Log In Time: October 21, 2016 at 21:11. [facility] ED Course: 21:14 Patient visited by Maggy Govea. [facility] 21:14 [facility] [place] Private Physician. [facility] 21:14 Patient moved to Waiting dem1 21:14 Patient moved to Pre RCE dem1 21:15 Triage Initiated philippe 23:03 Peri Babin RN is Primary Nurse. tana 23:03 Patient moved to 6 tana 23:06 Karan Flores MD is Attending Physician. br1 23:06 Patient visited by July Robbins PCA. tana 23:10 Patient visited by Carson Vanegas RN. nn1 23:14 Patient visited by Karan Flores MD. br1 23:56 Primary Nurse role handed off by Peri Babin RN tana 23:56 [facility] Payment Agreement was scanned into [employer] and attached to record. zo 23:58 Lactic Acid (Allan tube on ice) Sent. nn1 23:58 Lipase Sent. nn1 23:58 Liver Profile Sent. nn1 23:58 BMP Sent. nn1 23:58 CBC with Diff Sent. nn1 23:58 Urine Culture Sent. nn1 23:58 Urinalysis Sent. nn1 23:59 Inserted saline lock: 20 gauge in right antecubital area and blood collected. The nn1 patient tolerated the procedure well. Labs drawn. (by ED staff). Sent per order to lab. Urine collected. Clean catch specimen. Urine specimen sent to lab. 0207 00:01 Attending Physician role handed off by Karan Flores MD cs11 00:01 Salvador Garnett DO is Attending Physician. cs11 00:18 Patient visited by Carson Vanegas RN. nn1 01:20 Patient visited by Carson Vanegas RN. nn1 02:09 Patient visited by Carson Vanegas RN. nn1 02:47 Patient visited by Carson Vanegas RN. nn1 03:24 Patient visited by Carson Vanegas RN. nn1 03:57 Patient visited by Carson Vanegas RN. nn1 04:10 Sunny [facility] is Referral Physician. cs11 04:17 Patient visited by July Robbins PCA. tana 04:23 The patient / caregiver is instructed regarding the plan of care and ED course. nn1 04:23 No procedures done that require assistance. nn1 04:30 CT ABD & PELVIS: IV and Oral Contrast Returned. EDMS 10:08 T-Sheet-- Draft Copy was scanned into [employer] and attached to record. gb 10:08 Radiology Report was scanned into [employer] and attached to record. gb Administered Medications: 10/21 23:56 Not Given (Patient Refused): Acetaminophen Tablet 650 mg PO once br1 23:58 Drug: NS 0.9% 1000 ml [sodium chloride 0.9 % intravenous solution] Route: IV; Rate: 150 nn1 mL/hr; Site: right antecubital; 10/22 04:25 Follow up: IV Status: Infusion discontinued; IV Intake: 900ml nn1 10/21 23:58 Drug: Ondansetron 4 mg [ondansetron HCl 2 mg/mL intravenous solution (2 mL)] Route: nn1 IVP; Site: right antecubital; 10/22 00:19 Drug: morphine 4 mg [morphine 4 mg/mL intravenous cartridge (1 mL)] Route: IVP; Site: nn1 right antecubital; 00:19 Drug: Acetaminophen 650 mg [acetaminophen 650 mg rectal suppository (1 supp)] Route: AR;nn1 00:19 Drug: Diatrizoate Meglumine & Sodium 10 ml [diatrizoate meglumine and diat.sodium 66 nn1 %-10 % oral solution (10 mL)] Route: PO; Intake: 04:25 IV: 900.00ml; Total: 900.00ml. nn1 Order Results: Lab Order: CBC with Diff; SPEC'M 10/21/16 23:41 Test: WHITE BLOOD COUNT; Value: 7.3; Range: 4.0-10.0; Units: K/mm3; Status: F Test: RED BLOOD COUNT; Value: 4.65; Range: 4.00-5.40; Units: M/mm3; Status: F Test: HEMOGLOBIN; Value: 12.3; Range: 12.0-16.0; Units: g/dl; Status: F Test: HEMATOCRIT; Value: 37.9; Range: 36.0-47.0; Units: %; Status: F Test: MEAN CORPUSCULAR VOLUME; Value: 81.5; Range: 80.0-96.0; Units: fl; Status: F Test: MEAN CORPUSCULAR HEMOGLOBIN; Value: 26.5; Range: 27.0-33.0; Abnormal: Below low normal; Units: pg; Status: F Test: MEAN CORPUSCULAR HGB CONC; Value: 32.5; Range: 32.0-36.5; Units: g/dl; Status: F Test: RED CELL DISTRIBUTION WIDTH; Value: 13.6; Range: 11.5-14.5; Units: %; Status: F Test: PLATELET COUNT, AUTOMATED; Value: 116; Range: 150-450; Abnormal: Below low normal; Units: k/mm3; Status: F Test: NEUTROPHILS %; Value: 71.8; Range: 36.0-66.0; Abnormal: Above high normal; Units: %; Status: F Test: LYMPH %; Value: 20.7; Range: 24.0-44.0; Abnormal: Below low normal; Units: %; Status: F Test: MONO %; Value: 5.3; Range: 0.0-5.0; Abnormal: Above high normal; Units: %; Status: F Test: EOS %; Value: 0.3; Range: 0.0-3.0; Units: %; Status: F Test: BASO %; Value: 0.3; Range: 0.0-1.0; Units: %; Status: F Test: LARGE UNSTAINED CELL %; Value: 1.5; Range: 0.0-4.0; Units: %; Status: F Test: NEUTROPHILS #; Value: 5.3; Range: 1.8-7.7; Units: K/mm3; Status: F Test: LYMPH #; Value: 1.5; Range: 1.5-4.5; Units: K/mm3; Status: F Test: MONO #; Value: 0.4; Range: 0.0-0.8; Units: K/mm3; Status: F Test: EOS #; Value: 0.0; Range: 0.0-0.50; Units: K/mm3; Status: F Test: BASO #; Value: 0.0; Range: 0.0-0.2; Units: K/mm3; Status: F Test: LARGE UNSTAINED CELL #; Value: 0.1; Range: 0.0-0.4; Units: K/mm3; Status: F Lab Order: [facility]; [facility] 10/22/16 00:32 Test: GLUCOSE, FASTING; Value: 84; Range: 70-105; Units: MG/DL; Status: F Test: BLOOD UREA NITROGEN; Value: 7; Range: 7-18; Units: MG/DL; Status: F Test: CREATININE FOR GFR; Value: 0.54; Range: 0.55-1.02; Abnormal: Below low normal; Units: MG/DL; Status: F Test: GLOMERULAR FILTRATION RATE; Value: > 60.0; Range: >60; Status: F Test: SODIUM LEVEL; Value: 142; Range: 136-145; Units: MEQ/L; Status: F Test: POTASSIUM SERUM; Value: 3.6; Range: 3.5-5.1; Units: MEQ/L; Status: F Test: CHLORIDE LEVEL; Value: 108; Range: 98-107; Abnormal: Above high normal; Units: MEQ/L; Status: F Test: CARBON DIOXIDE LEVEL; Value: 24; Range: 21-32; Units: MEQ/L; Status: F Test: ANION GAP; Value: 10; Range: 8-16; Units: MEQ/L; Status: F Test: CALCIUM LEVEL; Value: 8.3; Range: 8.5-10.1; Abnormal: Below low normal; Units: MG/DL; Status: F Test Note: ; Units are mL/min/1.73 m2 Chronic Kidney Disease Staging per NKF: Stage I & II GFR >=60 Normal to Mildly Decreased Stage III GFR 30-59 Moderately Decreased Stage IV GFR 15-29 Severely Decreased Stage V GFR <15 Very Little GFR Left ESRD GFR <15 on REMOTE SENSING ANALYST Lab Order: Liver Profile; [facility] 10/22/16 00:32 Test: AST/SGOT; Value: 12; Range: 15-37; Abnormal: Below low normal; Units: U/L; Status: F Test: ALT/SGPT; Value: 23; Range: 12-78; Units: U/L; Status: F Test: ALKALINE PHOSPHATASE; Value: 59; Range: 45-117; Units: U/L; Status: F Test: BILIRUBIN,TOTAL; Value: 0.7; Range: 0.2-1.0; Units: MG/DL; Status: F Test: BILIRUBIN,DIRECT; Value: 0.2; Range: 0.0-0.2; Units: MG/DL; Status: F Test: TOTAL PROTEIN; Value: 6.5; Range: 6.4-8.2; Units: GM/DL; Status: F Test: ALBUMIN; Value: 3.2; Range: 3.2-5.2; Units: GM/DL; Status: F Test: ALBUMIN/GLOBULIN RATIO; Value: 0.97; Range: 1.00-1.93; Abnormal: Below low normal; Status: F Lab Order: Lipase; [facility] 10/22/16 00:32 Test: LIPASE; Value: 158; Range: 73-393; Units: U/L; Status: F Lab Order: Lactic Acid (Allan tube on ice); [facility] 10/21/16 23:41 Test: LACTIC ACID SEPSIS PROTOCOL; Value: 0.6; Range: 0.4-2.0; Units: MMOL/L; Status: F Lab Order: HCG,Serum Qualitative; [facility] 10/22/16 00:32 Test: HCG, SERUM QUALITATIVE; Value: NEGATIVE; Range: NEGATIVE; Status: F Lab Order: Urinalysis; [facility] 10/21/16 23:41 Test: APPEARANCE, URINE; Value: CLOUDY; Range: CLEAR; Abnormal: Above high normal; Status: F Test: COLOR, URINE; Value: VIVIANA; Range: YELLOW; Status: F Test: PH,URINE; Value: 5.0; Range: 5.0-9.0; Units: UNITS; Status: F Test: SPECIFIC GRAVITY URINE AUTO; Value: 1.032; Range: 1.002-1.035; Status: F Test: PROTEIN, URINE AUTO; Value: 2+; Range: NEGATIVE; Abnormal: Above high normal; Units: mg/dL; Status: F Test: GLUCOSE, URINE (UA) AUTO; Value: NEGATIVE; Range: NEGATIVE; Units: mg/dL; Status: F Test: KETONE, URINE AUTO; Value: 2+; Range: NEGATIVE; Abnormal: Above high normal; Units: mg/dL; Status: F Test: UROBILINOGEN, URINE AUTO; Value: 2.0; Range: 0.0-2.0; Abnormal: Above high normal; Units: mg/dL; Status: F Test: BILIRUBIN, URINE AUTO; Value: 2+; Range: NEGATIVE; Abnormal: Above high normal; Status: F Test: NITRITE, URINE AUTO; Value: NEGATIVE; Range: NEGATIVE; Status: F Test: LEUKOCYTE ESTERASE, URINE AUTO; Value: NEGATIVE; Range: NEGATIVE; Status: F Test: BLOOD, URINE BLOOD; Value: NEGATIVE; Range: NEGATIVE; Status: F Test: WBC, URINE AUTO; Value: 5; Range: 0-3; Abnormal: Above high normal; Units: /HPF; Status: F Test: RBC, URINE AUTO; Value: 2; Range: 0-3; Units: /HPF; Status: F Test: BACTERIA, URINE AUTO; Value: NEGATIVE; Range: NEGATIVE; Status: F Test: SQUAMOUS EPITHELIAL CELL UR AU; Value: 10; Range: 0-6; Units: /HPF; Status: F Test: MUCUS, URINE; Value: LARGE; Range: NEGATIVE; Status: F Test: HYALINE CAST, URINE AUTO; Value: 0; Range: 0-1; Units: /LPF; Status: F Lab Order: Urine Culture; SPEC'M 10/21/16 23:41 Test: URINE CULTURE; Value: <EXTERNAL COMMENT eCWMed> FULL REPORT IN LAB NOTES (eCW and [employer]ent).; Status: F Test: URINE CULTURE; Value: URINE CULTURE RESULT NO GROWTH CLINICAL SIGNIFICANCE 1 ORGANISM; Status: F Radiology Order: CT ABD & PELVIS: IV and Oral Contrast Test: CT ABD & PELVIS: IV and Oral Contrast REASON FOR EXAMINATION: Abdomen Pain; ; CLINICAL HISTORY: Abdominal pain.; TECHNIQUE: Multiple axial, sagittal and coronal CT images were obtained through the abdomen and pelvi; s after administration of oral and intravenous contrast material.; COMMENTS:; The liver is of uniform attenuation without mass or defect. There is no intra or extrahepatic biliary; ductal dilatation. The spleen is normal. The gallbladder is surgically absent. The pancreas is of no; rmal contour and attenuation characteristics. There is no evidence of adrenal mass.; Both kidneys demonstrate prompt and equal nephrograms. The kidneys are normal in size, shape and conf; iguration. There is no evidence of renal or ureteral mass. No renal or ureteral calculi are identifie; d. There is no hydroureter or hydronephrosis.; No evidence for appendicitis. No evidence for small or large bowel obstruction. There is no evidence; of abdominal ascites or lymphadenopathy. Mildly dilated proximal small bowels. Diffuse thickening of; the sigmoid and descending colon.; There is no evidence of intrinsic or extrinsic bladder mass. There is no pelvic ascites or lymphadeno; leticia. Intrauterine device is seen. Diffuse thickening of the wall of the bladder.; Images of the lung bases show no evidence of pleural or parenchymal mass. There are no pleural effusi; ons.; The bony structures are free of lytic or blastic lesions. Multilevel degenerative changes are seen in; volving the thoracolumbar spine. Scattered calcifications are seen involving the aorta and major bran; ches compatible with atherosclerosis.; IMPRESSION:; Gastric surgery.; Fat thickening in the surgical bed.; Mild ileus.; Diffuse thickening of the sigmoid and descending colon.; Thank you for your kind referral of this patient.; ; Outcome: 04:10 Discharge ordered by Provider. cs11 04:22 Discharge Assessment: Patient awake, alert and oriented x 3. No cognitive and/or nn1 functional deficits noted. Patient verbalized understanding of disposition instructions. patient administered narcotics - yes. Pt provided with safe discharge. The following High Risk Discharge criteria are identified: None. Discharged to home ambulatory, with significant other. Condition: good Condition: stable Condition: improved. CT Study completed. Property :Personal belongings accompany Pt. 04:25 Patient left the ED. nn1 Signatures: Dispatcher [employer] EDMS Carmen Romero, Reg Reg Jennifer Chow Brian, MD MD br1 July Robbins, Maggy Sweeney dem1 Salvador Garnett, DO cs11 Gagan Amaya,RN RN Carson EspositoRN RN nn1 Chart Complete MTDD
--- NOTE | 2016-10-24 05:26 | EDDOCDS ---
Physician Documentation [facility] Name: Raquel Castaneda Age: 30 yrs Sex: Female : 1985 Arrival Date: 10/21/2016 Time: 21:12 Bed 6 Private MD: PATO Correa Disposition: 10/22/16 04:10 Discharged to Home/Self Care. Impression: Abdominal tenderness, Postgastric surgery syndromes. - Condition is Stable. - Medication Reconciliation, Local Pharmacy Hours form. - Follow up: PATO Correa; When: Call to arrange an appointment; Reason: Recheck today's complaints. - Problem is an ongoing problem. - Symptoms have improved. Historical: - Allergies: PCN; Zantac; - Home Meds: 1. none - PMHx: PCOS; Anxiety; Depression; - PSHx: Tonsillectomy; D & C; Gastric Bypass; - Social history: Smoking status: Patient states was never smoker of tobacco. No barriers to communication noted, The patient speaks fluent Nauruan, Speaks appropriately for age. - Family history: No immediate family members are acutely ill. - : The pt / caregiver states he / she is not on anticoagulants. Home medication list is obtained from the patient. - Exposure Risk Screening:: None identified. BRACER: 10/21 21:17 LMP N/A - control method [facility] Vital Signs: 21:14 BP 120 / 69; Pulse 125; Resp 18; Temp 100.7(O); Pulse Ox 98% on R/A; Weight 118.84 kg / dem1 262 lbs; Height 5 ft. 8 in. (172.72 cm); Pain 8/10; 23:49 BP 101 / 58 (auto/); nn1 23:56 BP 104 / 61 (auto/); nn1 02 00:11 BP 110 / 61 (auto/); nn1 00:41 BP 105 / 62 (auto/); nn1 00:56 BP 103 / 64 (auto/); nn1 01:11 BP 106 / 64 (auto/); nn1 01:26 BP 108 / 62 (auto/); nn1 01:40 Resp 18; Temp 98.1(O); nn1 02:08 BP 112 / 58; Pulse 61; Resp 18; Pulse Ox 97% on R/A; nn1 04:16 BP 108 / 59; Pulse 71; Resp 18; Temp 97.5(O); Pulse Ox 95% on R/A; Pain 5/10; tana 10/21 21:14 Body Mass Index 39.84 (118.84 kg, 172.72 cm) dem1 MDM: 10/21 23:15 IV Saline Lock ordered. br1 23:15 Acetaminophen Tablet 650 mg PO once ordered. br1 23:15 NS 0.9% 1000 ml IV at 150 mL/hr continuous ordered. br1 23:16 morphine 4 mg IVP once ordered. br1 23:16 Ondansetron 4 mg IVP once ordered. br1 23:16 CBC with Diff Ordered. EDMS 23:16 BMP Ordered. EDMS 23:16 Liver Profile Ordered. EDMS 23:16 Lipase Ordered. EDMS 23:16 Lactic Acid (Allan tube on ice) Ordered. EDMS 23:16 HCG,Serum Qualitative Ordered. EDMS 23:17 Urinalysis Ordered. EDMS 23:17 Urine Culture Ordered. EDMS 23:52 CT ABD & PELVIS: IV and Oral Contrast Ordered. EDMS 23:55 Financial registration complete. zo 23:56 [facility] Payment Agreement was scanned into Bug[employer] and attached to record. zo 23:56 Acetaminophen Suppository 650 mg NJ once ordered. br1 23:57 NOTHING BY MOUTH+DIET ordered. EDMS 07 00:12 Diatrizoate Meglumine & Sodium Liquid 10 ml PO once; mix in 290cc of water; 1st cup \T\ nn1 0010, 2nd cup \T\ 0040 ordered. 01:02 CBC with Diff Reviewed. cs11 01:02 Urinalysis Reviewed. cs11 01:02 Lactic Acid (Allan tube on ice) Reviewed. cs11 04:07 BMP Reviewed. cs11 04:07 Liver Profile Reviewed. cs11 04:07 Lipase Reviewed. cs11 04:07 HCG,Serum Qualitative Reviewed. cs11 10:08 T-Sheet-- Draft Copy was scanned into Buggl and attached to record. gb 10:08 Radiology Report was scanned into Buggl and attached to record. gb Administered Medications: 10/21 23:56 Not Given (Patient Refused): Acetaminophen Tablet 650 mg PO once br1 23:58 Drug: NS 0.9% 1000 ml [sodium chloride 0.9 % intravenous solution] Route: IV; Rate: 150 nn1 mL/hr; Site: right antecubital; 10/22 04:25 Follow up: IV Status: Infusion discontinued; IV Intake: 900ml nn1 10/21 23:58 Drug: Ondansetron 4 mg [ondansetron HCl 2 mg/mL intravenous solution (2 mL)] Route: nn1 IVP; Site: right antecubital; 10/22 00:19 Drug: morphine 4 mg [morphine 4 mg/mL intravenous cartridge (1 mL)] Route: IVP; Site: nn1 right antecubital; 00:19 Drug: Acetaminophen 650 mg [acetaminophen 650 mg rectal suppository (1 supp)] Route: NJ;nn1 00:19 Drug: Diatrizoate Meglumine & Sodium 10 ml [diatrizoate meglumine and diat.sodium 66 nn1 %-10 % oral solution (10 mL)] Route: PO; Signatures: Dispatcher [employer] EDMS Carmen Romero, Reg Reg gb Jennifer Angel Brian, MD MD br1 Salvador Garnett DO DO cs11 Gagan Amaya,DEVANTE RN jacquelinb Carson Vanegas,RN RN nn1 The chart was reviewed and I authenticate all verbal orders and agree with the evaluation and treatment provided.Attachments: 10/21 23:56 [facility] Payment Agreement zo 10/22 10:08 T-Sheet-- Draft Copy gb Chart Complete MTDD
== END 2016-10-22 04:25 | disposition home or self-care (01) ==
LOC: M ED 21:12
DX: R10.9 Unspecified abdominal pain (principal); K91.1 Postgastric surgery syndromes; E28.2 Polycystic ovarian syndrome; F41.9 Anxiety disorder, unspecified; F32.9 Major depressive disorder, single episode, unspecified; Z88.0 Allergy status to penicillin; Z88.8 Allergy status to other drugs, medicaments and biological substances
CPT/HCPCS: 36415; 74177; 80048; 80076; 81001; 83605; 83690; 84703; 85025; 87086; 96361; 96374; 96375; 99284; J2405; Q9963; Q9967

== ENCOUNTER → 2016-12-18 | Outpatient (CLI) | payer OTHER ==
--- NOTE | 2016-12-18 22:43 | REP ---
Digital diagnostic bilateral mammography with CAD and focused bilateral breast sonography. History: Positive family history breast carcinoma and ovarian carcinoma. Bilateral lumps palpated on clinician breast exam. These are reported at 12 o'clock, 1 o'clock, and 11 o'clock in the left breast and at 9 o'clock in the right breast. Findings: CC and MLO views are obtained in each breast. There are normal-appearing intramammary lymph nodes in the lateral aspect of the left breast. These are seen on recent CT study of the abdomen. The breast parenchyma is otherwise predominately fat replaced bilaterally. No suspicious density is seen. No architectural distortion or microcalcification is observed. No worrisome skin change is seen. Sonographic findings: The right breast is scanned from 8 o'clock 10 o'clock and the left breast 10 o'clock to 2 o'clock. Somewhat heterogeneous and background echotexture is seen. No mass, cyst or architectural distortion is seen at any of these sites in either breast. Impression: BIRADS category 2 benign bilateral breast imaging. This negative report should not dissuade one from biopsy of a palpable lump depending on its clinical characteristics. Clinical follow-up is recommended. BI-RADS/ACR category 2 mammogram. Benign finding(s). Routine annual screening mammography (for women over age 40). This mammogram was interpreted with the aid of an FDA-approved computer-aided detection system. The patient states she/he had a clinical breast exam in December 2016 The patient letter being requested is m#[email or web address]. Signed by Jim Zhang MD 12/19/2016 08:28 A
== END ==
LOC: M RAD 12:56
PROVIDERS: ATTEND Family Medicine
DX: N63 Unspecified lump in breast (principal); Z80.3 Family history of malignant neoplasm of breast; Z80.41 Family history of malignant neoplasm of ovary
CPT/HCPCS: 76642; G0204

== ENCOUNTER 2017-03-06 20:32 | Emergency (ER) | payer OTHER ==
[~2017-03-06] VITALS: Ht 172.7 cm; Wt 92.0 kg
[2017-03-06] MEDS ORDERED: PRIL20CA9 PO (20:50)
[2017-03-06] MEDS ORDERED: COLA100C5 PO (20:50)
[2017-03-06] MEDS ORDERED: BARI1CHW PO (20:50)
[2017-03-06] MEDS ORDERED: ZOLO100T PO (20:50)
[2017-03-06] MEDS ORDERED: ONDANSETRON 4MG/2ML VIAL (J2405) IV ONE (21:15)
[2017-03-06] MEDS ORDERED: NS 1,000 ML IV ONE (21:15)
[2017-03-06] MEDS ORDERED: KETOROLAC 30 MG/ML VIAL (J1885) IV ONE (21:15)
[2017-03-06] MEDS ORDERED: PANTOPRAZOLE 40MG INJ (PROTONIX) (C9113) IV ONE (21:15)
[2017-03-06] MEDS ORDERED: GASTROGRAFIN SOLUTION 30ML (Q9963) PO ONE ×2 (21:30→22:00)
[2017-03-06 21:33] LABS: BASO % 0.3 % (0.0-1.0); EOS # 0.1 K/mm3 (0.0-0.50); EOS % 1.3 % (0.0-3.0); LARGE UNSTAINED CELL # 0.1 K/mm3 (0.0-0.4); LARGE UNSTAINED CELL % 1.2 % (0.0-4.0); LYMPH # 2.7 K/mm3 (1.5-4.5); LYMPH % 40.9 % (24.0-44.0); MEAN CORPUSCULAR HEMOGLOBIN 28.3 pg (27.0-33.0); MEAN CORPUSCULAR HGB CONC 32.9 g/dl (32.0-36.5); MEAN CORPUSCULAR VOLUME 86.1 fl (80.0-96.0); MONO # 0.2 K/mm3 (0.0-0.8); MONO % 3.7 % (0.0-5.0); NEUTROPHILS # 3.4 K/mm3 (1.8-7.7); NEUTROPHILS % 52.7 % (36.0-66.0); PLATELET COUNT, AUTOMATED 168 k/mm3 (150-450); RED CELL DISTRIBUTION WIDTH 13.3 % (11.5-14.5); WHITE BLOOD COUNT 6.4 K/mm3 (4.0-10.0)
[2017-03-06 21:59] LABS: ALBUMIN 3.8 GM/DL (3.2-5.2); ALBUMIN/GLOBULIN RATIO 1.27 (1.00-1.93); ALKALINE PHOSPHATASE 84 U/L (45-117); ALT/SGPT 15 U/L (12-78); ANION GAP 6 MEQ/L (8-16); AST/SGOT 11 U/L (15-37); BILIRUBIN,DIRECT < 0.1 MG/DL (0.0-0.2); BILIRUBIN,TOTAL 0.3 MG/DL (0.2-1.0); BLOOD UREA NITROGEN 16 MG/DL (7-18); CALCIUM LEVEL 8.3 MG/DL (8.5-10.1); CARBON DIOXIDE LEVEL 28 MEQ/L (21-32); CHLORIDE LEVEL 108 MEQ/L (98-107); CREATININE FOR GFR 0.63 MG/DL (0.55-1.02); GLOMERULAR FILTRATION RATE > 60.0 (>60); GLUCOSE, FASTING 86 MG/DL (70-105); POTASSIUM SERUM 3.6 MEQ/L (3.5-5.1); SODIUM LEVEL 142 MEQ/L (136-145); TOTAL PROTEIN 6.8 GM/DL (6.4-8.2)
[2017-03-06] MEDS ORDERED: ISOVUE-370 76% 100ML VIAL (Q9967) As Ordered ONE (22:41)
[2017-03-06] MEDS ORDERED: MORPHINE 2 MG/ML 1ML SYRINGE IV ONE (22:45)
--- NOTE | 2017-03-06 23:20 | REPUSA ---
CT of the abdomen and pelvis with contrast Clinical statement: Pain. Technique: Multiple axial CT images were obtained from the base of the lungs through the floor of the pelvis utilizing 5 mm axial slices after administration of nonionic intravenous contrast. Coronal an d sagittal reconstructions were also obtained. Comparison: 10/22/2016. Findings: Chest: The visualized lung bases are clear. Abdomen: The liver, spleen, pancreas, kidneys, and adrenal glands are unremarkable. Gastric surgical changes are intact. The liver is enlarged, measuring 24 cm in longest diameter. The aorta is within n ormal limits. There is no evidence of abdominal lymphadenopathy or ascites. Pelvis: The bowel is unremarkable, with no obstructive or inflammatory changes. The urinary bladder i s within normal limits. The other pelvic structures appear grossly intact. IUD is in place. There is no evidence of pelvic lymphadenopathy or ascites. Bones: There are no suspicious osseous abnormalities seen. Impression: Unremarkable CT examination of the abdomen and pelvis.
[2017-03-06] MEDS ORDERED: SUCR1SS PO (23:34)
[2017-03-06 23:43] VITALS: BP 126/80
[2017-03-06] MEDS ORDERED: GI COCKTAIL 50ML BTL(HYOSCYAMINE/MAALOX/LIDOCAINE VISCOUS)(1:3:1) PO ONE (23:45)
== END 2017-03-06 23:45 | disposition home or self-care (01) ==
LOC: M ED 21:10
DX: R10.9 Unspecified abdominal pain (principal); Z98.84 Bariatric surgery status; Z90.49 Acquired absence of other specified parts of digestive tract; Z79.899 Other long term (current) drug therapy; Z88.0 Allergy status to penicillin; Z88.8 Allergy status to other drugs, medicaments and biological substances
CPT/HCPCS: 74177; 80048; 80076; 81001; 83605; 83690; 85025; 96374; 96375; 99283; C9113; J1885; J2405; Q9963; Q9967

== ENCOUNTER → 2017-04-16 | Outpatient (REF) ==
[~2017-04-16] MED LIST: BARI1CHW PO; COLA100C5 PO; CONC27TA4 PO; MAALSUS2 PO; PRIL20CA9 PO; SUCR1SS PO; ZANA2CAP PO; ZOLO100T PO
== END ==
LOC: M LAB 09:12
PROVIDERS: ATTEND Nurse Practitioner Adult Health
DX: Z01.89 Encounter for other specified special examinations (principal)

== ENCOUNTER → 2017-06-14 | Outpatient (REF) | payer OTHER | LOC: M SFHCLERA 15:39 | PROVIDERS: ATTEND Physician Assistant | DX: J02.9 Acute pharyngitis, unspecified (principal); R30.0 Dysuria | CPT/HCPCS: 87086; G0463 ==

== ENCOUNTER 2017-07-03 19:35 | Emergency (ER) | payer OTHER ==
[~2017-07-03] VITALS: Ht 170.2 cm; Wt 83.6 kg
[~2017-07-03 19:35] MED LIST changes: -CONC27TA4 PO; -MAALSUS2 PO; -ZANA2CAP PO
[2017-07-03 19:40] VITALS: BP 105/69
[2017-07-03] MEDS ORDERED: CONC27TA4 PO (19:45)
[2017-07-03] MEDS ORDERED: ZANA2CAP PO (19:45)
[2017-07-03 22:00] LABS: BASO % 0.5 % (0.0-1.0); EOS # 0.1 10^3/uL (0.0-0.50); EOS % 1.2 % (0.0-3.0); IMMATURE GRANULOCYTE % 0.2 % (0-0); LYMPH # 2.7 10^3/uL (1.5-4.5); MEAN CORPUSCULAR HEMOGLOBIN 28.1 pg (27.0-33.0); MEAN CORPUSCULAR HGB CONC 32.8 g/dl (32.0-36.5); MEAN CORPUSCULAR VOLUME 85.8 fl (80.0-96.0); MONO # 0.4 10^3/uL (0.0-0.8); MONO % 6.4 % (0.0-5.0); NEUTROPHILS # 2.6 10^3/uL (1.8-7.7); NEUTROPHILS % 44.7 % (36.0-66.0); PLATELET COUNT, AUTOMATED 182 10^3/uL (150-450); RED CELL DISTRIBUTION WIDTH 12.5 % (11.5-14.5); WHITE BLOOD COUNT 5.8 10^3/uL (4.0-10.0)
[2017-07-03] MEDS ORDERED: NS 1,000 ML IV ONE (22:00)
[2017-07-03] MEDS ORDERED: MORPHINE 2 MG/ML 1ML SYRINGE IV ONE (22:00)
[2017-07-03] MEDS ORDERED: GI COCKTAIL 50ML BTL(HYOSCYAMINE/MAALOX/LIDOCAINE VISCOUS)(1:3:1) PO ONE (22:30)
[2017-07-03 22:39] LABS: AMYLASE 71 U/L (25-115); ANION GAP 3 MEQ/L (8-16); BLOOD UREA NITROGEN 15 MG/DL (7-18); CALCIUM LEVEL 8.4 MG/DL (8.5-10.1); CARBON DIOXIDE LEVEL 31 MEQ/L (21-32); CHLORIDE LEVEL 107 MEQ/L (98-107); CREATININE FOR GFR 0.61 MG/DL (0.55-1.02); GLOMERULAR FILTRATION RATE > 60.0 (>60); GLUCOSE, FASTING 86 MG/DL (70-105); POTASSIUM SERUM 3.6 MEQ/L (3.5-5.1); SODIUM LEVEL 141 MEQ/L (136-145)
[2017-07-03 22:54] LABS: INR 1.04
[2017-07-04] MEDS ORDERED: MAALSUS2 PO (00:12)
== END 2017-07-04 01:33 | disposition home or self-care (01) ==
LOC: M ED 19:35
DX: K29.60 Other gastritis without bleeding (principal); Z98.84 Bariatric surgery status; K21.9 Gastro-esophageal reflux disease without esophagitis; F33.9 Major depressive disorder, recurrent, unspecified; Z79.899 Other long term (current) drug therapy; Z88.8 Allergy status to other drugs, medicaments and biological substances; Z88.0 Allergy status to penicillin; Z87.891 Personal history of nicotine dependence

== ENCOUNTER → 2017-11-11 | Outpatient (REF) | payer OTHER | LOC: M SFHCLERA 19:10 | DX: J02.9 Acute pharyngitis, unspecified (principal) ==